=== PATIENT | male | born 1950 | race African-American/Black ===

== ENCOUNTER 2019-06-08 15:49 | Inpatient (IN) | payer BC, MEDICARE, OTHER ==
[~2019-06-08] VITALS: Ht 172.7 cm; Wt 87.3 kg
[~2019-06-08 15:49] MED LIST: ABILIFY5 MG ORAL; ATARAX25 MG ORAL; BENADRYL25 M3 PO; CARAFATE1 G1 ORAL; DIPHENHYDRAMINE25 M1 ORAL; FEOSOL325 MG ORAL; FERROUS SULFAT325 MG ORAL; FOLIC ACID1 MG ORAL; KEFLEX500 MG ORAL; LASIX40 MG ORAL; LORAZEPAM1 MG ORAL; OMEPRAZOLE40 M1 ORAL; PROTONIX40 MG ORAL; PYRIDOXINE HCL50 MG ORAL; RISPERDAL1 MG PO; RISPERDAL2 MG ORAL; THIAMINE HCL100 MG ORAL; TRAZODONE HCL150 MG ORAL; [UNRECOGNIZED DRUG - OTHER]
[2019-06-08 16:05] VITALS: BP 120/71
--- NOTE | 2019-06-08 16:05 | NUR ---
ED Nurse Note: pt brought in to ER from bus stop due to severe diziness and BLE edema and general weakness. pt aao x4 and reported he is usually ambulatory but not at this moment due to dizziness and weakness. calm and cooperative but drowsy. skin clean and intact. pt is in gown and on quality assurance monitor. pt reported that he consumped cocaine and beer today but does not remember dosage and amount.
--- NOTE | 2019-06-08 16:21 | NUR ---
ED Nurse Note: ERMD at bedside.
[2019-06-08 16:37] VITALS: BP_SYST 105; BP_SYST 120; BP_SYST 96; BP_DIAS 55; BP_DIAS 61; BP_DIAS 70
--- NOTE | 2019-06-08 16:42 | NUR ---
ED Nurse Note: per ERMD, pt is ok to eat and drink. juice and sandwich provided per pt's request.
[2019-06-08 16:43] LABS: HEMOGLOBIN 8.8 G/DL (14.2-18.0); MEAN CORPUSCULAR VOLUME 98 FL (80-99); PLATELET COUNT 83 K/UL (150-450); RED BLOOD COUNT 2.75 M/UL (4.70-6.10); RED CELL DISTRIBUTION WIDTH 22.7 % (11.6-14.8); WHITE BLOOD COUNT 3.1 K/UL (4.8-10.8)
[2019-06-08 16:48] LABS: ANION GAP 12 mmol/L (5-15); BLOOD UREA NITROGEN 8 mg/dL (7-18); CALCIUM 8.1 MG/DL (8.5-10.1); CARBON DIOXIDE 23 MMOL/L (21-32); CHLORIDE 102 MMOL/L (98-107); CREATININE 0.9 MG/DL (0.55-1.30); SODIUM 137 MMOL/L (136-145)
--- NOTE | 2019-06-08 16:53 | Emergency Room Report ---
History of Present Illness General Chief Complaint: Dizziness Source: Patient, EMS Present Illness HPI Disclaimer: Please note that this report is being documented using DRAGON technology. This can lead to erroneous entry secondary to incorrect interpretation by the dictating instrument. HPI: 68-year-old male with history of alcohol abuse, cocaine abuse presents for evaluation of fatigue and lightheadedness as well as lower extremity edema. States the swelling is been getting worse over the past few days. He has had swelling in the legs before however this resolved. He denies any chest pain, shortness of breath, loss of consciousness. He feels lightheaded intermittently especially when he walks over longer distances. He has not lost consciousness, no head injury. He denies any chest pain, palpitations, abdominal pain, vomiting or diarrhea. States he has had a GI bleed in the past but denies any melena or hematochezia. Denies dysuria or hematuria. Admits to using cocaine havings used some last night. Drinks alcohol regularly. PMH: Polysubstance use PSH: [] Allergies: [] Social Hx: [] Allergies: Coded Allergies: SHELLFISH DERIVED (Unverified Allergy, Intermediate, 08/15/16) IODINE (Verified Allergy, Mild, 10/22/15) Nursing Documentation-PMH Past Medical History: No History, Except For Hx Cardiac Problems: No Hx Hypertension: Yes Hx Diabetes: Yes Hx Cancer: No Hx Gastrointestinal Problems: Yes History Of Psychiatric Problem: Yes Hx Neurological Problems: No Review of Systems All Other Systems: negative except mentioned in HPI Physical Exam Vital Signs Date Time Temp Pulse Resp B/P (MAP) Pulse Ox O2 Delivery O2 Flow Rate FiO2 06/08/19 15:55 97.0 75 15 120/71 (87) 99 Room Air General: Awake and alert, no acute distress HEENT: NC/AT. EOMI. PERRLA. Anicteric sclera. Chronicus membranes Neck: Supple, trachea midline Chest Wall: No tenderness, no deformity Cardiovascular: RRR. S1 and S2 normal. No murmur appreciated Resp: Normal work of breathing. No cough, wheezing or crackles appreciated Abdomen: Abdomen is soft, nondistended. Nontender Skin: Intact. No abrasions, laceration or rash over the exposed skin MSK: Normal tone and bulk. Moving all extremities. Bilateral lower extremity nonpitting edema of the feet and distal shins. Good capillary refill. Palpable pulses. Neuro: Awake and alert. Mentating appropriately. Medical Decision Making Diagnostic Impression: Primary Impression: Anemia Additional Impressions: Lightheaded Lower extremity edema Cocaine abuse ER Course 68-year-old male with history of polysubstance abuse, alcohol abuse presents for evaluation of several days lower extremity edema, pain with ambulation, lightheadedness and fatigue. Differential is broad and includes but is not limited to substance abuse, alcohol use, kidney dysfunction, CHF, dependent edema, venous stasis, overexertion, electrolyte abnormality, infection. Will start a broad metabolic and toxic work-up as well as cardiac labs. Orthostatic hypotension. IV fluids are running. Laboratory Tests Test 06/08/19 16:30 06/08/19 17:10 White Blood Count 3.1 K/UL (4.8-10.8) L Red Blood Count 2.75 M/UL (4.70-6.10) L Hemoglobin 8.8 G/DL (14.2-18.0) L Hematocrit 27.0 % (42.0-52.0) L Mean Corpuscular Volume 98 FL (80-99) Mean Corpuscular Hemoglobin 32.1 PG (27.0-31.0) H Mean Corpuscular Hemoglobin Concent 32.7 G/DL (32.0-36.0) Red Cell Distribution Width 22.7 % (11.6-14.8) H Platelet Count 83 K/UL (150-450) L Mean Platelet Volume 6.6 FL (6.5-10.1) Neutrophils (%) (Auto) % (45.0-75.0) Lymphocytes (%) (Auto) % (20.0-45.0) Monocytes (%) (Auto) % (1.0-10.0) Eosinophils (%) (Auto) % (0.0-3.0) Basophils (%) (Auto) % (0.0-2.0) Differential Total Cells Counted 100 Neutrophils % (Manual) 40 % (45-75) L Lymphocytes % (Manual) 52 % (20-45) H Monocytes % (Manual) 8 % (1-10) Eosinophils % (Manual) 0 % (0-3) Basophils % (Manual) 0 % (0-2) Band Neutrophils 0 % (0-8) Platelet Estimate Decreased L Platelet Morphology Normal Hypochromasia 2+ Anisocytosis 2+ Target Cells 1+ Sodium Level 137 MMOL/L (136-145) Potassium Level 4.0 MMOL/L (3.5-5.1) Chloride Level 102 MMOL/L (98-107) Carbon Dioxide Level 23 MMOL/L (21-32) Anion Gap 12 mmol/L (5-15) Blood Urea Nitrogen 8 mg/dL (7-18) Creatinine 0.9 MG/DL (0.55-1.30) Estimat Glomerular Filtration Rate > 60 mL/min (>60) Glucose Level 111 MG/DL (74-106) H Calcium Level 8.1 MG/DL (8.5-10.1) L Total Bilirubin 0.6 MG/DL (0.2-1.0) Aspartate Amino Transf (AST/SGOT) 135 U/L (15-37) H Alanine Aminotransferase (ALT/SGPT) 85 U/L (12-78) H Alkaline Phosphatase 254 U/L (46-116) H Troponin I 0.000 ng/mL (0.000-0.056) Pro-B-Type Natriuretic Peptide 83 pg/mL (0-125) Total Protein 6.2 G/DL (6.4-8.2) L Albumin 2.4 G/DL (3.4-5.0) L Globulin 3.8 g/dL Albumin/Globulin Ratio 0.6 (1.0-2.7) L Lipase 162 U/L (73-393) Salicylates Level 1.0 ug/mL (2.8-20) L Acetaminophen Level < 2 MCG/ML (10-30) L Serum Alcohol 135 mg/dL Urine Color Pale yellow Urine Appearance Clear Urine pH 6 (4.5-8.0) Urine Specific [place] 1.010 (1.005-1.035) Urine Protein Negative (NEGATIVE) Urine Glucose (UA) Negative (NEGATIVE) Urine Ketones Negative (NEGATIVE) Urine Blood Negative (NEGATIVE) Urine Nitrite Negative (NEGATIVE) Urine Bilirubin Negative (NEGATIVE) Urine Urobilinogen Normal MG/DL (0.0-1.0) Urine Leukocyte Esterase Negative (NEGATIVE) Urine RBC 0-2 /HPF (0 - 0) H Urine WBC 0-2 /HPF (0 - 0) Urine Squamous Epithelial Cells None /LPF (NONE/OCC) Urine Bacteria Few /HPF (NONE) Urine Opiates Screen Negative (NEGATIVE) Urine Barbiturates Screen Negative (NEGATIVE) Phencyclidine (PCP) Screen Negative (NEGATIVE) Urine Amphetamines Screen Negative (NEGATIVE) Urine Benzodiazepines Screen Negative (NEGATIVE) Urine Cocaine Screen Positive (NEGATIVE) H Urine Marijuana (THC) Screen Negative (NEGATIVE) EKG Diagnostic Results EKG Time: 16:33 EP Interpretation: Normal sinus rhythm Rate: normal Rhythm: NSR ST Segments: no acute changes Other Impression Normal axis, normal intervals, no acute ST segment changes. Rhythm Strip Diag. Results Rhythm Strip Time: 16:33 EP Interpretation: yes Rate: 90s Rhythm: NSR Reevaluation Time: 22:01 Last Vital Signs Date Time Temp Pulse Resp B/P (MAP) Pulse Ox O2 Delivery O2 Flow Rate FiO2 06/08/19 16:37 98.2 88 105/55 95 120/70 105 96/61 06/08/19 16:05 15 99 Room Air Status: unchanged Reevaluation Impression Lab work is returned largely within normal limits. He did have positive for cocaine though troponin was negative. EKG shows no evidence of ischemia. His hemoglobin did return low at 8.8 with a normocytic anemia. He has been severely anemic before and had a upper endoscopy which showed duodenal ulcers that was not bleeding at the time. Occult blood was negative. Patient will be admitted for symptomatic anemia. He is stable for the floor but will require further work-up. Disposition: ADMITTED INPATIENT Condition: Serious Sukhi Scott MD Jun 08, 2019 16:53
[2019-06-08 16:57] LABS: ALANINE AMINOTRANSFERASE 85 U/L (12-78); ALBUMIN 2.4 G/DL (3.4-5.0); ALBUMIN/GLOBULIN RATIO 0.6 (1.0-2.7); ALKALINE PHOSPHATASE 254 U/L (46-116); ASPARTATE AMINO TRANSFERASE 135 U/L (15-37); BILIRUBIN,TOTAL 0.6 MG/DL (0.2-1.0)
[2019-06-08 17:31] LABS: APPEARANCE,URINE CLEAR; BILIRUBIN, URINE NEGATIVE (NEGATIVE); COLOR,URINE PALE YELLOW; GLUCOSE, URINE (UA) NEGATIVE (NEGATIVE); KETONES,URINE NEGATIVE (NEGATIVE); LEUKOCYTE ESTERASE ,URINE NEGATIVE (NEGATIVE); NITRITE,URINE NEGATIVE (NEGATIVE); PH,URINE 6 (4.5-8.0); PROTEIN,URINE NEGATIVE (NEGATIVE); UROBILINOGEN,URINE NORMAL MG/DL (0.0-1.0)
--- NOTE | 2019-06-08 18:58 | NUR ---
HAND-OFF: Report given to MARILIA Burger. Bolus is running. Orthostatic will be checked after bolus. no orders to carry at this moment. labs were sent to the lab.
--- NOTE | 2019-06-08 19:10 | NUR ---
ED Nurse Note: Received pt in no acute distress. IV intact.
[2019-06-08 19:35] VITALS: BP 128/77
[2019-06-08 19:37] VITALS: BP 141/74
[2019-06-08 19:39] VITALS: BP 118/76
--- NOTE | 2019-06-08 22:10 | NUR ---
ED Nurse Note: Handed pt off to Evelina CAPELLAN to resume care.
--- NOTE | 2019-06-08 22:15 | NUR ---
ED Nurse Note: Recieved report from MARILIA Bruno from bed 5 to resume care, pt is in bed resting, awake, alert and oriented x 4, has patent saline lock in right arm, pt denies pain, no sob or labored breathing, given blankets for comfort,pt placed in hallway bed, will continue to closely monitor as pt waiting for admission bed for admit and disposition.
[2019-06-08 22:45] VITALS: BP 109/71
[2019-06-08] MEDS ORDERED: Nitroglycerin Subl 0.4mg tab SL PRN (23:15)
[2019-06-08] MEDS ORDERED: LORazepam 1mg tab ORAL PRN (23:15)
--- NOTE | 2019-06-09 00:15 | NUR ---
ED Nurse Note: Pt continues to rest on gurney, pt is being admitted to hospital, report called to floor nurse MARILIA Dalal, pt being taken to unit via gurney with er-tech, pt is awake and alert, iv sites x 2 intact and patent, belonging list completed, nad noted during pt transport to floor bed. pt denies pain, no sob or labored breathing. no monitoring, pt has been admitted to Med-Surg.
--- NOTE | 2019-06-09 01:05 | NUR ---
NURSE NOTES: Received report from [facility] ED. Pt arrived to unit @0025 and transferred into bed in room 403-2. Pt is AAO x 4, ambulatory, and on room air.Vitals obtained BP 115/65, temp. 99.2, HR 90, O2 94%, RR 20. Assessment is done. Pt has lower extremities edema and pain on the legs. No labored breathing. IV on R FA and L Hand but infiltrated noted on R IV. RN removed R FA IV. All belongings reviewed. Pt has $77 telles and doesn't want to keep in hospital's safe. Meds recon done. Reported Dr. Baez regarding Hgb 8.8, Hct 27, Plt 83 and doctor placed orders. Bed locked, lowest position, alarm on, call light within reach. Will continue to monitor.
[2019-06-09 04:00] VITALS: BP 113/65
--- NOTE | 2019-06-09 07:11 | NUR ---
HAND-OFF: Report given to Radha Vee RN.
--- NOTE | 2019-06-09 07:20 | NUR ---
NURSE NOTES: Late entry for 06/09/19 Received patient in bed, awake, alert and oriented x4. Not in respiratory/cardiac distress. Denies any pain or discomfort. IV intact, no s/s of infiltration. Bed is in lowest position and locked. Call light within reach. Will continue plan of care.
[2019-06-09 07:25] LABS: HEMATOCRIT 28.6 % (42.0-52.0); HEMOGLOBIN 8.9 G/DL (14.2-18.0); MEAN CORPUSCULAR VOLUME 102 FL (80-99); PLATELET COUNT 70 K/UL (150-450); RED CELL DISTRIBUTION WIDTH 23.4 % (11.6-14.8); WHITE BLOOD COUNT 2.8 K/UL (4.8-10.8)
[2019-06-09 07:36] LABS: ANION GAP 7 mmol/L (5-15); BLOOD UREA NITROGEN 8 mg/dL (7-18); CARBON DIOXIDE 25 MMOL/L (21-32); CHLORIDE 108 MMOL/L (98-107); POTASSIUM 3.6 MMOL/L (3.5-5.1); SODIUM 140 MMOL/L (136-145)
[2019-06-09 08:00] VITALS: BP 116/68
--- NOTE | 2019-06-09 09:00 | NUR ---
NURSE NOTES: patient seen by Dr. Zavala. Rn made Dr. Zavala aware of PLT of 70, no bloody urine or s/s of GI bleed and bilateral foot swollen and distended abdomen with h/o alcohol abuse.Dr. Zavala ordered US of abdomen. Patient is on NPO for US of abdomen.
--- NOTE | 2019-06-09 09:33 | NUR ---
*-* NO INSURANCE INFORMATION IN THE BAR UNABLE TO SEND CLINICALS OR REVIEWS *-*
[2019-06-09] MEDS: Thiamine 100mg tab ORAL SCH (09:45)
[2019-06-09 12:00] VITALS: BP 129/85
--- NOTE | 2019-06-09 13:00 | History and Physical Report ---
DATE OF ADMISSION: 06/08/2019 REASON FOR ADMISSION: Dizziness. HISTORY OF PRESENT ILLNESS: The patient is a 68-year-old gentleman with well known cocaine and alcohol abuse, who presented to the emergency room for further evaluation and care of lightheaded and dizziness. The patient's serum alcohol was 135. He was also positive once again for cocaine. The patient states that his lightheadedness had progressively gotten worse with drinking. He drinks regularly. PAST MEDICAL HISTORY: Polysubstance abuse. PAST SURGICAL HISTORY: None. ALLERGIES: Diovan and shellfish. FAMILY HISTORY: Positive for hypertension. REVIEW OF SYSTEMS: NEUROLOGIC: The patient denies headache, change in vision, syncope, or presyncopal episodes. CARDIOVASCULAR: No current chest pain, palpitations, or angina. PULMONARY: No difficulty breathing, productive cough, or sputum. GASTROINTESTINAL/GENITOURINARY: No change in urine or bowel habits. No nausea, vomiting, or diarrhea. ENDOCRINOLOGY: No night sweats, fevers, or chills. MUSCULOSKELETAL: The patient is feeling weak, tired, and fatigued. LABORATORY DATA: Labs dated June 09, 2019, white cell count 2.8, hemoglobin 8.9, and platelet count 70. Sodium 140, potassium 3.6, creatinine 1. Troponin 0. AST and ALT 135 and 85 respectively, alkaline phosphatase 254. PHYSICAL EXAMINATION: VITAL SIGNS: Blood pressure 113/65, respiratory rate 18, pulse 76, temperature 98.7, and 96% oxygen saturation on room air. GENERAL: The patient awake, alert, not in distress. HEENT: Extraocular muscles intact. No lymphadenopathy noted. Oropharyngeal mucosa is clear and dry. CARDIOVASCULAR: S1, S2. No rubs or gallops. PULMONARY: Clear to auscultation bilaterally. No rales, rhonchi, or wheezes. ABDOMEN: Nondistended and nontender. EXTREMITIES: 1+ edema. ASSESSMENT AND PLAN: 1. Dizziness secondary to volume depletion and alcohol intoxication in combination with cocaine. At this time, continue aggressive hydration. No further alcohol or cocaine. 2. Pancytopenia secondary to chronic alcohol abuse. At this time, continue thiamine and folate. 3. Psychiatric history. The patient is on Risperdal and Abilify. 4. DVT prophylaxis with SCDs. 5. Dehydration. Continue IV fluids. Yasmany Baez MD DR: NATALIIA JOB#: [id number] CC:
--- NOTE | 2019-06-09 13:30 | NUR ---
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
--- NOTE | 2019-06-09 13:33 | NUR ---
Social Work This Sw received a consult due to substance abuse. This SW met with patient who remains alert/oriented x4, stating he lives with friend, Steve and plans to discharge to home when medically cleared. Patient expressing concerns regarding his swollen abdomen and legs. Patient admits to history of substance abuse (alcohol and Crack). Patient appears not to be forthcoming regarding frequency of the abuse. Patient states he has quit from substance abuse in the past, but then started using again. Patient requested substance abuse treatment options and counseling. List of substance resources provided. Patient denied any past or present mental health concerns, does not currently express any suicidal/homicidal ideations. No other needs/concerns present at this time.
--- NOTE | 2019-06-09 15:56 | Diagnostic Imaging Report ---
ABDOMINAL ULTRASOUND - COMPLETE INDICATION: Elevated LFTs. TECHNIQUE: Multiplanar ultrasound examination of the abdomen with greyscale and doppler imaging. COMPARISON: Abdominal ultrasound dated 12/03/2014 FINDINGS: Liver: The liver is increased in size and demonstrates increased echogenicity. Contour is nodular. No focal abnormalities are noted. There is ascites. Gallbladder: The gallbladder is distended with a thickened wall, measuring up to 7 mm. There is a hyperechoic structure adherent to the gallbladder wall measuring up to 4mm. Sonographic Garvey's sign is negative. Common bile duct: Normal in size. Pancreas: The visualized portion of pancreas is normal in echogenicity. There are no masses. Kidneys: The kidneys are normal in size and echogenicity. There is no hydronephrosis. Left renal cyst. Spleen: The spleen is normal in size and echogenicity. Aorta: The aorta is normal in caliber. IMPRESSION: 1. Distended gallbladder with thickened wall; in the context of negative sonographic Garvey's sign, these findings are equivocal for acute cholecystitis, as this appearance can be seen with cirrhosis. 2. Enlarged fatty liver with irregular contour suggesting early cirrhosis. 3. Gallbladder wall structure which may represent tumefactive sludge ball versus gallbladder polyp. While polyps less than 8mm are usually benign, follow up in one year is recommended to establish growth. 4. Small volume ascites.
[2019-06-09 16:00] VITALS: BP 127/81
--- NOTE | 2019-06-09 19:27 | NUR ---
HAND-OFF: Report given to Katlin.
--- NOTE | 2019-06-09 19:32 | NUR ---
NURSE NOTES: Received patient sleeping in bed. IV site intact and running 1/2 NS 100cc/hr. No pain and no acute distress noted at this time. pt is on low sodium diet. Dr. Baez aware low Hgb, Hct, and Plt. Bed lowest position, locked, alarm on, side rails up x 2, call light within reach. Will continue to monitor.
[2019-06-09 20:00] VITALS: BP 144/76
[2019-06-10] VITALS: BP 150/78
[2019-06-10 04:00] VITALS: BP 135/82
[2019-06-10 06:16] LABS: HEMATOCRIT 30.5 % (42.0-52.0); HEMOGLOBIN 9.4 G/DL (14.2-18.0); MEAN CORPUSCULAR VOLUME 104 FL (80-99); PLATELET COUNT 65 K/UL (150-450); RED BLOOD COUNT 2.92 M/UL (4.70-6.10); RED CELL DISTRIBUTION WIDTH 23.1 % (11.6-14.8); WHITE BLOOD COUNT 2.5 K/UL (4.8-10.8)
[2019-06-10 06:43] LABS: ANION GAP 5 mmol/L (5-15); BLOOD UREA NITROGEN 6 mg/dL (7-18); CALCIUM 7.9 MG/DL (8.5-10.1); CARBON DIOXIDE 27 MMOL/L (21-32); CHLORIDE 107 MMOL/L (98-107); POTASSIUM 3.6 MMOL/L (3.5-5.1); SODIUM 139 MMOL/L (136-145)
--- NOTE | 2019-06-10 07:15 | NUR ---
HAND-OFF: Report given to Radha Vee RN.
--- NOTE | 2019-06-10 07:52 | NUR ---
NURSE NOTES: Received patient in bed, awake, alert and oriented x4. Not in respiratory/cardiac distress. Denies any pain or discomfort. IV intact, no s/s of infiltration. Bed is in lowest position and locked. Call light within reach. Will continue plan of care.
[2019-06-10 08:00] VITALS: BP 123/84
--- NOTE | 2019-06-10 08:28 | Nephrology Progress Note ---
Assessment/Plan Assessment/Plan: A/P 1) Acute Polysubtance Intoxication - Cocaine and alcohol - resolved. Apprecaite SW assistance - DC today. Patient has place with friend 2) Pancytopenia- due to alcohol. Stable - spoke to his PCP will f/u 1 week DC today. No changes in medication. Counselled on substance abuse cessation. PCP will assist with out patient f/u Subjective Date patient seen: Jun 10, 2019 Time patient seen: 08:22 ROS Limited/Unobtainable: No Allergies: Coded Allergies: SHELLFISH DERIVED (Unverified Allergy, Intermediate, 08/15/16) IODINE (Verified Allergy, Mild, 10/22/15) Subjective Patient feels much better Objective Last 24 Hour Vital Signs Date Time Temp Pulse Resp B/P (MAP) Pulse Ox O2 Delivery O2 Flow Rate FiO2 06/10/19 08:00 98.0 71 18 123/84 (97) 95 06/10/19 04:00 98.1 77 17 135/82 (99) 95 06/10/19 00:00 98.3 72 18 150/78 (102) 95 06/09/19 21:00 Room Air 06/09/19 20:00 97.2 75 17 144/76 (98) 99 06/09/19 16:00 98.5 92 18 127/81 (96) 98 06/09/19 12:00 98.6 89 18 129/85 (100) 97 06/09/19 09:00 Room Air Intake and Output 06/09/19 06/10/19 19:00 07:00 Intake Total 1100 ml 1150 ml Output Total 800 ml Balance 1100 ml 350 ml IV Total 1100 ml 1150 ml Output Urine Total 800 ml # Voids 6 3 Laboratory Tests 06/10/19 04:52: White Blood Count 2.5L, Red Blood Count 2.92L, Hemoglobin 9.4L, Hematocrit 30.5L , Mean Corpuscular Volume 104H, Mean Corpuscular Hemoglobin 32.1H, Mean Corpuscular Hemoglobin Concent 30.8L, Red Cell Distribution Width 23.1H, Platelet Count 65L, Mean Platelet Volume 6.5, Neutrophils (%) (Auto) , Lymphocytes (%) (Auto) , Monocytes (%) (Auto) , Eosinophils (%) (Auto) , Basophils (%) (Auto) , Neutrophils % (Manual) [Pending], Lymphocytes % (Manual) [Pending], Platelet Estimate [Pending], Platelet Morphology [Pending], Sodium Level 139, Potassium Level 3.6, Chloride Level 107, Carbon Dioxide Level 27, Anion Gap 5, Blood Urea Nitrogen 6L, Creatinine 1.0, Estimat Glomerular Filtration Rate > 60, Glucose Level 100, Calcium Level 7.9L Height (Feet): 5 Height (Inches): 8.00 Weight (Pounds): 192 General Appearance: no apparent distress, alert EENT: normal ENT inspection Neck: normal alignment Cardiovascular: normal rate, regular rhythm Respiratory/Chest: lungs clear, normal breath sounds Abdomen: non tender, soft Edema: no edema noted Arm (L), no edema noted Arm (R), no edema noted Leg (L), no edema noted Leg (R), no edema noted Pedal (L), no edema noted Pedal (R), no edema noted Generalized Yasmany Baez MD Jun 10, 2019 08:28
--- NOTE | 2019-06-10 08:30 | Discharge Instructions ---
Discharge Instructions Discharge Instructions Services at Discharge: day care Diet: 2 GM sodium (low sodium) Resume Normal Activity?: Yes Follow Up Orders Follow up Dr Dylan Buchanan 1 week For Congestive Heart Failure Reminder Report to your physician any weight gain of 5 pounds or more in one week. Yasmany Baez MD Jun 10, 2019 08:30
--- NOTE | 2019-06-10 08:30 | NUR ---
NURSE NOTES: Received discharge order from Dr. Baez. Dr. Baez said if venous duplex of lower ex's result is negative, patient can be discharged. RN placed calls to vascular dept. No one is available. Will follow up.
[2019-06-10] MEDS: Thiamine 100mg tab ORAL SCH (08:47)
--- NOTE | 2019-06-10 09:40 | NUR ---
NURSE NOTES: Received venous duplex results that is negative. Dr. Baez said patient can be discharged to home.Patient asked for bus tokens since no one is available. 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
--- NOTE | 2019-06-10 11:00 | NUR ---
NURSE NOTES: patient was discharged to home in stable condition. Patient is alert and oriented x4. v/S stable.Prior to discharge, no edema on lower ex's. discharge instruction given to the patient. Patient will follow up with his primary doctor and specialist as needed. Skin intact, IV and ID were removed. No s/s of infection on IV removal site. No bleeding on IV removal site.
--- NOTE | 2019-06-10 14:04 | NUR ---
*-* INSURANCE *-* ALL CLINICALS AND REVIEWS FAXED TO: [facility] [place]O:DAVIAN P:[phone] F: [phone]
--- NOTE | 2019-06-10 14:05 | NUR ---
*-* INSURANCE *-* ALL CLINICALS AND REVIEWS FAXED TO: [facility] [place]DAVIAN P:[phone] F: [phone]
--- NOTE | 2019-06-11 11:25 | Discharge Summary ---
Discharge Summary Discharge Summary _ DATE OF ADMISSION: 06/08/2019 DATE OF DISCHARGE: 06/10/2019 DISCHARGED BY: Dr. Baez REASON FOR ADMISSION: 68 years old male with past medical history of polysubstance abuse , including cocaine and alcohol, presented to emergency department for dizziness and lightheadedness. Upon evaluation urine toxicology screen was positive for cocaine. Serum alcohol level was 135. Stable electrolytes and renal parameters. AST 135 , ALT 85. Lipase stable. Troponin negative, pro BNP 83. EKG revealed sinus rhythm , no acute ischemic changes. Albumin 2.4. WBC 3.1, hemoglobin 8.8 , hematocrit 27, platelet count 83. Patient subsequently admitted for further management. HOSPITAL COURSE: Patient admitted to medical surgical floor. Patient started on generous IV hydration. Patient was counseled on abstinence from alcohol and cocaine. Renal parameters and electrolytes were closely monitored. Electrolytes were corrected as needed. Nephrotoxics were avoided. Patient started on folic acid and thiamine. GI prophylaxis provided. Antiemetic were on board as needed. Psychiatric medication resumed. Abdominal ultrasound revealed distended gallbladder with thickened wall; in the context of negative sonographic Garvey's sign, these findings were equivocal for acute cholecystitis, as this appearance can be seen with cirrhosis. Enlarged fatty liver with irregular contour suggesting early cirrhosis. Gallbladder wall structure, which may represent tumefactive sludge ball versus gallbladder polyp. While polyps less than 8mm are usually benign, follow up in one year is recommended to establish growth. Small volume ascites. Venous duplex bilateral lower extremity revealed no evidence of acute DVT. Hemoglobin and hematocrit remained stable. Prior to discharge hemoglobin 9.4, hematocrit 30.5 mL. No evidence of bleeding. research worker encyclopedia seen and evaluated patient. Patient has a place to stay with his friend. Patient's condition was discussed with his primary care provider . Patient will need to follow-up with him within 1 week. Primary care provider will assist with his outpatient follow-up. Patient clinically stabilized and was ready for discharge home. Outpatient follow-up with primary care provider within a week FINAL DIAGNOSES: Dizziness secondary to volume depletion and alcohol intoxication in combination with cocaine. Dehydration Pancytopenia , secondary to chronic alcohol abuse Psychiatric history Polysubstance abuse ( cocaine, alcohol) DISCHARGE MEDICATIONS: See Medication Reconciliation list. DISCHARGE INSTRUCTIONS: Patient was discharged home. Follow up with primary care provider in one week. I have been assigned to dictate discharge summary for this account. I was not involved in the patient's management. Susanna Chavira NP Jun 11, 2019 11:25
--- NOTE | 2019-06-11 14:05 | NUR ---
*-* INSURANCE *-* DISCHARGE SUMMARY HAS BEEN FAXED TO: [facility] [place]:DAVIAN P:[phone] F: [phone]
--- NOTE | 2019-06-12 23:01 | Diagnostic Imaging Report ---
APPROVED REPORT CPT Code: 75331 Present Symptoms Comments: BILATERAL LEGS PAIN. BILATERAL: Imaging reveals a patent deep venous system bilaterally. There is no evidence of thrombus within the femoral, popliteal or tibial segments. The greater saphenous veins are also within normal limits. Doppler indicates normal spontaneous flow within these segments.
== END 2019-06-10 11:08 | disposition home or self-care (01) | DRG 897 ==
LOC: EDBD 15:49 → EDUNIT# 15:49 → EMR 17:20 → 4E 22:30 → EDBEDREQ 23:14
DX: F10.129 Alcohol abuse with intoxication, unspecified (principal); D61.818 Other pancytopenia; F14.129 Cocaine abuse with intoxication, unspecified; R42 Dizziness and giddiness; D64.9 Anemia, unspecified; E86.0 Dehydration; E86.9 Volume depletion, unspecified
CPT/HCPCS: 36415; 76700; 80048; 80053; 80307; 80329; 81001; 83690; 83880; 84484; 85007; 85025; 93005; 93970; 96360; 99285